=== PATIENT | male | born 1995 | race African-American/Black ===

== ENCOUNTER 2017-12-19 06:09 | Day surgery (SDC) | payer OTHER ==
[2017-12-19 06:36] VITALS: BMI 27.1
[2017-12-19] MEDS ORDERED: MIDAZOLAM HCL 2 MG/2 ML SINGLE DOSE VIAL ONE (07:37)
[2017-12-19] MEDS ORDERED: LIDOCAINE 1%/EPI 1:100000 (20 ML MULTI DOSE VIAL) ONE (07:51)
[2017-12-19] MEDS ORDERED: BUPIVACAINE HCL/PF 0.5% (5MG/ML) 10 ML VIAL ONE (07:51)
--- NOTE | 2017-12-19 08:02 | HP ---
Satellite [facility] - Chief Complaint Chief Complaint: left knee pain - Past Medical History Allergies/Adverse Reactions: Allergies Allergy/AdvReac Type Severity Reaction Status Date / Time No Known Allergies Allergy Verified 12/19/17 07:20 - Current Medications Current Medications: Home Medications Medication Instructions Recorded No Home Medications 0 dose .ROUTE UTDICT 03/31/13 Satellite Physical Exam - Physical Examination Vital Signs: Vital Signs Period Temp Pulse Resp BP Sys/Lopez Pulse Ox Last 24 Hr 97.8 F-97.8 F 73-73 20-20 108-108/42-42 99 Extremities: Other (+ joint line tenderness) Satellite Impression/Plan - Impression/Plan Impression: internal derangement left knee Operative Procedure: arthroscopy left knee Date to be Performed: 12/19/17
[2017-12-19] MEDS ORDERED: PROPOFOL 20 ML ONE ×2 (08:04)
[2017-12-19] MEDS ORDERED: LIDOCAINE 1%/EPI 1:100000 (20 ML MULTI DOSE VIAL) INF ONE (08:16)
[2017-12-19] MEDS ORDERED: BUPIVACAINE HCL/PF 0.5% (5MG/ML) 10 ML VIAL IJ ONE (08:20)
[2017-12-19 08:26] LABS: URINE APPEARANCE CLEAR; URINE BILIRUBIN NEGATIVE (NEGATIVE); URINE BLOOD NEGATIVE (NEGATIVE); URINE COLOR YELLOW; URINE GLUCOSE (UA) NEGATIVE (NEGATIVE); URINE KETONE TRACE (NEGATIVE); URINE LEUK ESTERASE NEGATIVE (NEGATIVE); URINE NITRITE NEGATIVE (NEGATIVE); URINE UROBILINOGEN 4.0 E.U/dl mg/dL (0.2-1.0)
--- NOTE | 2017-12-19 08:37 | OP ---
Operative Note - Note: Operative Date: 12/19/17 Pre-Operative Diagnosis: internal derangement left knee Operation: arthroscopy left knee with excision of loose body Post-Operative Diagnosis: Same as Pre-op Surgeon: Judah Fink Anesthesia: General Specimens Removed: loose body Estimated Blood Loss (mls): 0 Operative Report Dictated: Yes
[2017-12-19] MEDS ORDERED: DEXAMETHASONE SOD PHOSPHATE 4 MG/1 ML VIAL ONE (08:39)
[2017-12-19] MEDS ORDERED: LIDOCAINE HCL/PF 2% SDV 5ML VIAL ONE (08:39)
[2017-12-19] MEDS ORDERED: KETOROLAC TROMETHAMINE 30 MG/1 ML VIAL ONE (08:39)
[2017-12-19] MEDS ORDERED: PROMETHAZINE HCL 25 MG/1 ML VIAL IVPB PRN (08:48)
[2017-12-19] MEDS ORDERED: oxyCODONE HCL 5 MG TABLET PO PRN (08:48)
[2017-12-19] MEDS ORDERED: ONDANSETRON 4 MG/2 ML VIAL IVPUSH PRN (08:48)
[2017-12-19 08:49] LABS: URINE PROTEIN 1+ (NEGATIVE)
[2017-12-19 08:51] LABS: EPI CELLS RARE /HPF (FEW); URINE MUCUS RARE
[2017-12-19] MEDS ORDERED: LACTATED RINGERS SOLUTION 1,000 ML IV SCH (09:00)
--- NOTE | 2017-12-19 11:15 | OP ---
DATE OF OPERATION: 12/19/2017 PREOPERATIVE DIAGNOSIS: Loose body, left knee. POSTOPERATIVE DIAGNOSIS: Loose body, left knee. PROCEDURE: Arthroscopy, left knee, with excision of loose body. SURGICAL ATTENDING: Judah Fink MD ANESTHESIA: General with LMA. CLOSURE: 4-0 nylon. COMPLICATIONS: None. CONDITION: To recovery room in stable condition. DESCRIPTION OF OPERATIVE PROCEDURE: Patient was taken to the operating room on December 19, 2017. General anesthesia with LMA was administered by the anesthesiologist. The left lower extremity was prepped and draped in the usual sterile fashion. The medial and lateral infrapatellar portal sites were infiltrated with 1% Xylocaine with epinephrine. The scope trocar was placed up in the lateral infrapatellar portal up into the suprapatellar pouch. The knee was then inflated with a cocktail of 10 mL of 1% Xylocaine, 10 mL of 0.5% Marcaine, and 20 mL of arthroscopic saline. After allowing the cocktail to sit in the knee for a few minutes, we then proceeded with the operation. The undersurface of the patella was visualized and probed and found to be intact as was the trochlea. The medial gutter was found to be free of loose bodies. However, the lateral gutter had a large loose body. The scope was shifted to the medial infrapatellar portal. A grasper was placed through the lateral portal and was able to grasp the loose body and deliver it out the inferolateral portal. Scope was switched back to the inferolateral portal. The knee was thoroughly inspected, and for further loose bodies, the medial compartment was entered. Medial meniscus was visualized, probed, and found to be intact. The medial femoral condyle was run and found to be intact, as was the medial tibial plateau. At 90 degrees, the ACL was visualized, probed, and found to be intact. In the figure 4 position, the lateral compartment was entered. Lateral meniscus was visualized, probed, and found to be intact. The lateral femoral condyle was run and found to be intact, as was the lateral tibial plateau. The knee was irrigated with copious amounts of irrigation. The knee was taken through a range of motion numerous times to see if any further loose bodies would be visualized and none had. The knee was copiously irrigated, then, drained of its fluid. Portals were closed using 3-0 nylon prior to pulling the last trocar. Then, 10 mL of 0.5% Marcaine was infused into the knee for postoperative analgesia. Sterile pressure dressing was placed over the knee. Patient awakened from anesthesia and transferred to recovery in stable condition. No complications. Estimated blood loss negligible. JUDAH FINK M.D. [id number]
[2017-12-19 14:54] VITALS: BP 97/49; PULSE 48; TEMP 98
--- NOTE | 2017-12-22 13:22 | PATH ---
Surgical Pathology Report Patient Name: JONO DAO [facility]. Rec. #: [id number] /Age/Gender: 1995 (Age: 22) / M Account: [id number] Location: [facility] Taken: 12/19/2017 Received: 12/19/2017 Reported: 12/22/2017 Physicians: Judah Fink M.D. Specimen(s) Received A: LOOSE BODY LEFT KNEE SHAVINGS B: LEFT KNEE SHAVINGS Clinical History Internal derangement left knee Final Diagnosis A. KNEE, LEFT, LOOSE BODY, ARTHROSCOPY AND REMOVAL OF LOOSE BODY: FRAGMENTS OF CARTILAGE CONSISTENT WITH LOOSE BODIES. B. KNEE SHAVINGS, LEFT, ARTHROSCOPY: FRAGMENTS OF FIBROADIPOSE TISSUE AND SYNOVIUM. Electronically Signed Debora Winchester M.D. Gross Description A. Received in formalin labeled "loose body left knee," is a 1.4 x 1.6 x 0.4 cm yoon, hard portion of cartilage. The specimen is bisected and entirely submitted in one cassette, following decalcification. B. Received in formalin, labeled "left knee shavings," is a 3.5 x 3.0 x 0.3 cm. aggregate of yoon-yellow soft tissue fragments. A commissary representative portion is submitted in one cassette. 12/19/201712/19/2017
== END 2017-12-19 14:10 | disposition home or self-care (01) ==
LOC: JASU-SURG 06:09
PROVIDERS: ATTEND Orthopaedic Surgery
PROC: 0SCD4ZZ Extirpation of Matter from Left Knee Joint, Percutaneous Endoscopic Approach (ICD-10-PCS; principal; 2017-12-19 08:00)
DX: M23.42 Loose body in knee, left knee (principal)
CPT/HCPCS: 81003; 81015; 88304-TC; 88311-TC; 94760

== ENCOUNTER 2022-07-24 04:00 | Day surgery (SDC) | payer OTHER ==
[2022-07-23 13:32] VITALS: BMI 30.5
[2022-07-24] MEDS ORDERED: DEXAMETHASONE SOD PHOSPHATE 4 MG/1 ML VIAL ONE (07:24)
[2022-07-24] MEDS ORDERED: KETOROLAC TROMETHAMINE 30 MG/1 ML VIAL ONE (07:24)
[2022-07-24] MEDS ORDERED: ONDANSETRON 4 MG/2 ML VIAL ONE (07:24)
[2022-07-24] MEDS ORDERED: LIDOCAINE HCL/PF 2% SDV 5ML VIAL ONE (07:24)
[2022-07-24] MEDS ORDERED: PROPOFOL 20 ML ONE ×3 (07:24→08:42)
[2022-07-24] MEDS ORDERED: MIDAZOLAM HCL 2 MG/2 ML SINGLE DOSE VIAL ONE (07:25)
[2022-07-24] MEDS ORDERED: BUPIVACAINE HCL/PF 0.5% (5MG/ML) 10 ML VIAL ONE (07:27)
[2022-07-24] MEDS ORDERED: LIDOCAINE 1%/EPI 1:100000 (20 ML MULTI DOSE VIAL) ONE (07:27)
[2022-07-24] MEDS ORDERED: ceFAZolin SODIUM 1 GM VIAL IVPB ONE (08:20)
[2022-07-24] MEDS ORDERED: ceFAZolin SODIUM 1 GM VIAL ONE (08:23)
[2022-07-24] MEDS ORDERED: ONDANSETRON 4 MG/2 ML VIAL IVPUSH PRN (08:29)
[2022-07-24] MEDS ORDERED: oxyCODONE HCL 5 MG TABLET PO PRN (08:29)
[2022-07-24] MEDS ORDERED: LACTATED RINGERS SOLUTION 1,000 ML IV SCH (08:30)
[2022-07-24] MEDS ORDERED: LIDOCAINE 1%/EPI 1:100000 (20 ML MULTI DOSE VIAL) IJ ONE (08:34)
[2022-07-24] MEDS ORDERED: BUPIVACAINE HCL/PF 0.5% (5 MG/ML) 30 ML VIAL IJ ONE (08:35)
[2022-07-24 10:47] VITALS: RESP 16
[2022-07-24] MEDS ORDERED: oxyCODONE HCL 5 MG TABLET ONE (11:48)
[2022-07-24 12:52] VITALS: BP 112/55; PULSE 66; TEMP 97.4
== END 2022-07-24 13:02 | disposition home or self-care (01) ==
LOC: JASU-SURG 04:00
PROVIDERS: ATTEND Orthopaedic Surgery
PROC: 0SBD4ZZ Excision of Left Knee Joint, Percutaneous Endoscopic Approach (ICD-10-PCS; principal; 2022-07-24 08:00)
DX: M23.8X2 Other internal derangements of left knee (principal)
CPT/HCPCS: 94760; 97116-GP